=== PATIENT | male | born 1975 | race Caucasian/White ===

== ENCOUNTER 2018-06-25 22:32 | Observation (INO) | payer SELFPAY, OTHER ==
[2018-06-25 23:03] LABS: ADD MAN DIFF? NO
[2018-06-25 23:06] LABS: BASOPHILS % 0.5 % (0.0-2.0); EOSINOPHILS # 0.5 10^3/ul (0.0-0.5); EOSINOPHILS % 6.4 % (0.0-7.0); HEMATOCRIT 36.9 % (42.0-52.0); LYMPHOCYTES # 2.7 10^3/ul (0.8-2.9); LYMPHOCYTES % 33.6 % (15.0-51.0); MEAN CORPUSCULAR HEMOGLOBIN 29.6 pg (29.0-33.0); MEAN CORPUSCULAR HGB CONC 32.5 g/dl (32.0-37.0); MEAN CORPUSCULAR VOLUME 91.1 fl (82.0-101.0); MEAN PLATELET VOLUME 8.9 fl (7.4-10.4); MONOCYTE # 0.5 10^3/ul (0.3-0.9); MONOCYTES % 6.5 % (0.0-11.0); NEUTROPHIL # 4.2 10^3/ul (1.6-7.5); NEUTROPHILS % 52.6 % (39.0-77.0); PLATELET COUNT 301 10^3/UL (140-415); RED BLOOD COUNT 4.05 10^6/ul (4.70-6.10); RED CELL DISTRIBUTION WIDTH 13.5 % (11.5-14.5)
[2018-06-25 23:24] LABS: ALANINE AMINOTRANSFERASE 122 IU/L (13-69); ALBUMIN 3.6 g/dl (3.3-4.9); ALBUMIN/GLOBULIN RATIO 1.16; ALKALINE PHOSPHATASE 79 IU/L (42-121); ANION GAP 11 (8-16); ASPARTATE AMINO TRANSFERASE 54 IU/L (15-46); BILIRUBIN,INDIRECT 0.2 mg/dl (0-1.1); BILIRUBIN,TOTAL 0.2 mg/dl (0.2-1.3); BLOOD UREA NITROGEN 18 mg/dl (7-20); CALCIUM 9.6 mg/dl (8.4-10.2); CARBON DIOXIDE 29 mmol/L (21-31); CHLORIDE 104 mmol/L (97-110); CREATININE 0.86 mg/dl (0.61-1.24); GLUCOSE 142 mg/dl (70-220); POTASSIUM 3.6 mmol/L (3.5-5.1); SODIUM 140 mmol/L (135-144); TOTAL PROTEIN 6.7 g/dl (6.1-8.1)
[2018-06-25 23:35] LABS: B-TYPE NATRIURETIC PEPTIDE 137 PG/ML (0-125); TROPONIN-I < 0.012 ng/ml (0.000-0.120)
[2018-06-26] MEDS: LORAZEPAM 2 MG INJ IV (01:06)
[2018-06-26] MEDS: morphine 4 MG/ML VIAL IV ×2 (01:06→02:57)
[2018-06-26] MEDS ORDERED: ALBUTEROL/IPRATROPIUM (NEB) 3 ML AMP HHN (02:00)
[2018-06-26] MEDS ORDERED: NITROGLYCERIN (SL) 0.4 MG TAB SL (02:00)
[2018-06-26] MEDS ORDERED: NACL 0.9% 3 ML SYG IV (02:00)
[2018-06-26] MEDS ORDERED: ONDANSETRON 4 MG INJ IV (02:00)
[2018-06-26] MEDS ORDERED: ACETAMINOPHEN 325 MG TAB PO (02:00)
[2018-06-26 04:45] LABS: ADD MAN DIFF? NO
[2018-06-26 04:48] LABS: BASOPHIL # 0.1 10^3/ul (0.0-0.1); BASOPHILS % 0.7 % (0.0-2.0); EOSINOPHILS # 0.6 10^3/ul (0.0-0.5); HEMATOCRIT 39.5 % (42.0-52.0); HEMOGLOBIN 12.7 g/dl (14.0-18.0); LYMPHOCYTES # 4.3 10^3/ul (0.8-2.9); LYMPHOCYTES % 42.6 % (15.0-51.0); MEAN CORPUSCULAR HEMOGLOBIN 29.4 pg (29.0-33.0); MEAN CORPUSCULAR HGB CONC 32.2 g/dl (32.0-37.0); MEAN CORPUSCULAR VOLUME 91.4 fl (82.0-101.0); MEAN PLATELET VOLUME 9.1 fl (7.4-10.4); MONOCYTE # 0.8 10^3/ul (0.3-0.9); MONOCYTES % 7.4 % (0.0-11.0); NEUTROPHIL # 4.4 10^3/ul (1.6-7.5); NEUTROPHILS % 42.9 % (39.0-77.0); PLATELET COUNT 297 10^3/UL (140-415); RED BLOOD COUNT 4.32 10^6/ul (4.70-6.10); RED CELL DISTRIBUTION WIDTH 13.8 % (11.5-14.5)
[2018-06-26 04:48] LABS: WHITE BLOOD COUNT 10.2 10^3/ul (4.8-10.8)
[2018-06-26 05:04] LABS: HEMOGLOBIN A1C 5.3 % (0-5.9)
[2018-06-26 05:07] LABS: IRON 105 ug/dl (35-150)
[2018-06-26 05:09] LABS: CREATINE KINASE 239 IU/L (23-200)
[2018-06-26 05:11] LABS: ALANINE AMINOTRANSFERASE 121 IU/L (13-69); ALBUMIN/GLOBULIN RATIO 1.14; ALKALINE PHOSPHATASE 86 IU/L (42-121); ANION GAP 11 (8-16); ASPARTATE AMINO TRANSFERASE 51 IU/L (15-46); BILIRUBIN,INDIRECT 0.1 mg/dl (0-1.1); BILIRUBIN,TOTAL 0.1 mg/dl (0.2-1.3); BLOOD UREA NITROGEN 17 mg/dl (7-20); CALCIUM 9.9 mg/dl (8.4-10.2); CARBON DIOXIDE 28 mmol/L (21-31); CHLORIDE 107 mmol/L (97-110); CHOL/HDL RATIO 4.6 RATIO; CHOLESTEROL 225 mg/dl (100-200); GLUCOSE 109 mg/dl (70-220); HDL CHOLESTEROL 48 mg/dl (27-67); LDL CHOLESTEROL,CALCULATED 150 mg/dl; MAGNESIUM 2.1 mg/dl (1.7-2.5); SODIUM 142 mmol/L (135-144); TOTAL PROTEIN 7.5 g/dl (6.1-8.1); TRIGLYCERIDES 133 mg/dl (0-149)
[2018-06-26 05:16] LABS: % IRON SATURATION 26 % SAT (22-52); TOTAL IRON BINDING CAPACITY 405 ug/dl (241-421)
[2018-06-26 05:19] LABS: CK INDEX 0.5; CK-MB 1.12 ng/ml (0.0-2.4); TROPONIN-I < 0.012 ng/ml (0.000-0.120)
[2018-06-26] MEDS: ASPIRIN 81 MG TAB PO (09:09)
[2018-06-26] MEDS: ENOXAPARIN 40 MG/0.4 ML SYG SC (09:09)
[2018-06-26 09:20] LABS: FERRITIN 61.9 ng/ml (17.9-464.0)
[2018-06-26 11:43] LABS: CREATINE KINASE 199 IU/L (23-200)
[2018-06-26 11:54] LABS: CK INDEX 0.5; CK-MB 0.98 ng/ml (0.0-2.4); TROPONIN-I < 0.012 ng/ml (0.000-0.120)
[2018-06-26] MEDS ORDERED: CARISOPRODOL 350 MG TAB PO (13:00)
[2018-06-26] MEDS ORDERED: MELOXICAM 15 MG TAB PO (13:00)
[2018-06-26] MEDS: clonAZEPAM 0.5 MG TAB PO (13:41)
[2018-06-26] MEDS ORDERED: BUSPIRONE 10 MG TAB PO (21:00)
[2018-06-27] MEDS ORDERED: FLUOXETINE 20 MG CAP PO (09:00)
[2018-06-27] MEDS ORDERED: AMLODIPINE 10 MG TAB PO (09:00)
== END 2018-06-26 15:10 | disposition left against medical advice (07) ==
LOC: E/R 22:32 → ICU 06-26 01:17
DX: R07.9 Chest pain, unspecified (principal); Z76.5 Malingerer [conscious simulation]; F99 Mental disorder, not otherwise specified; I10 Essential (primary) hypertension; E11.9 Type 2 diabetes mellitus without complications; Z72.0 Tobacco use; Z91.19 Patient's noncompliance with other medical treatment and regimen
CPT/HCPCS: 71045; 80053; 80061; 82550; 82553; 82728; 83036; 83540; 83735; 83880; 84443; 84484; 85025; 93005; 93306; G0378